=== PATIENT | male | born 1950 | race Hispanic/Latino ===

== ENCOUNTER 2023-04-08 08:26 | Day surgery (SDC) | payer MEDICARE ==
[2023-04-08] VITALS (8 sets, daily range): BP systolic 135–176; BP diastolic 54–70; PULSE 60–65; RESP 12–20
[~2023-04-08] VITALS: Ht 167.6 cm; Wt 76.6 kg
[2023-04-08] MEDS ORDERED: CARV6.25 PO (10:50)
[2023-04-08] MEDS ORDERED: FURO40TA5 PO (10:50)
[2023-04-08] MEDS ORDERED: MAGN400C PO (10:50)
[2023-04-08] MEDS ORDERED: FOLI1TAB85 PO (10:50)
[2023-04-08] MEDS ORDERED: INSU100C6 SQ (10:50)
[2023-04-08] MEDS ORDERED: SPIR25TA6 PO (10:50)
[2023-04-08] MEDS ORDERED: LEVO75CA5 PO (10:50)
[2023-04-08] MEDS ORDERED: DUTA0.5C37 PO (10:50)
[2023-04-08] MEDS ORDERED: MECL-226 PO (10:50)
[2023-04-08] MEDS ORDERED: CLON0.1T PO (10:50)
[2023-04-08 10:54] LABS: BASOPHILS # (AUTO) 0.12 K/uL (0.00-0.20); BASOPHILS % (AUTO) 0.9 % (0.0-5.0); EOSINOPHILS # (AUTO) 0.47 K/uL (0.00-0.70); EOSINOPHILS % (AUTO) 3.7 % (0.0-8.0); HEMATOCRIT 27.1 % (42-54); IMMATURE GRANULOCYTE ABSOLUTE 0.12 K/uL (0-1); MEAN CORPUSCULAR HEMOGLOBIN 28.7 pg (27.0-33.0); MEAN CORPUSCULAR HGB CONC 32.1 g/dL (32.0-36.0); MEAN CORPUSCULAR VOLUME 89.4 fL (79-99); MONOCYTES # (AUTO) 0.7 K/uL (0.1-1.0); MONOCYTES % (AUTO) 5.7 % (3.0-13.0); NEUTROPHILS # (AUTO) 10.3 K/uL (1.8-7.7); NEUTROPHILS % (AUTO) 80.8 % (40.0-77.0); PLATELET COUNT (AUTO) 299 K/uL (130-400); RED BLOOD CELL COUNT(AUTO) 3.03 MIL/uL (4.50-6.20); RED CELL DISTRIBUTION WIDTH 16.5 % (11.0-15.5); WHITE BLOOD COUNT (AUTO) 12.8 K/uL (4.8-10.8)
[2023-04-08 11:04] LABS: INR 0.96 (0.85-1.15); PROTHROMBIN TIME 11.2 SEC (9.6-11.6)
[2023-04-08 11:07] LABS: POTASSIUM 4.4 mmol/L (3.5-5.1)
[2023-04-08 11:19] LABS: B-TYPE NATRIURETIC PEPTIDE 270 pg/mL (0-100)
[2023-04-08] MEDS ORDERED: LIDOCAINE HCL 1% MDV 50ML VIAL ONE (14:14)
[2023-04-08] MEDS ORDERED: FENTANYL CITRATE PF 50 MCG/1 ML 2ML VIAL ONE (14:15)
[2023-04-08] MEDS ORDERED: CEFAZOLIN SODIUM 1 GM VIAL ONE (14:15)
[2023-04-08] MEDS ORDERED: BUPIVACAINE/PF 0.25% 30ML VIAL IJ ONE (14:15)
[2023-04-08] MEDS ORDERED: MIDAZOLAM HCL 1 MG/ML 2ML VIAL ONE (14:15)
[2023-04-08] MEDS ORDERED: ACETAMINOPHEN WITH CODEINE 1 TAB TAB PO PRN ×2 (16:00)
[2023-04-08] MEDS ORDERED: ONDANSETRON 4MG INJ IV PRN (16:00)
[2023-04-08] MEDS ORDERED: HYDRALAZINE 20MG/ML VIAL ONE (16:18)
[2023-04-08] MEDS ORDERED: HYDRALAZINE 20MG/ML VIAL IV PRN (16:30)
== END 2023-04-08 19:05 | disposition home or self-care (01) ==
LOC: CLH 08:26 → DAH 08:26 → CLH 19:05
PROVIDERS: ATTEND Internal Medicine Interventional Cardiology
DX: I48.19 Other persistent atrial fibrillation (principal); I10 Essential (primary) hypertension; E78.00 Pure hypercholesterolemia, unspecified; G47.30 Sleep apnea, unspecified; G47.33 Obstructive sleep apnea (adult) (pediatric); E11.43 Type 2 diabetes mellitus with diabetic autonomic (poly)neuropathy; E11.59 Type 2 diabetes mellitus with other circulatory complications; I25.10 Atherosclerotic heart disease of native coronary artery without angina pectoris; Z99.2 Dependence on renal dialysis; Z95.5 Presence of coronary angioplasty implant and graft; Z95.0 Presence of cardiac pacemaker; Z79.4 Long term (current) use of insulin; Z79.899 Other long term (current) drug therapy; Z90.49 Acquired absence of other specified parts of digestive tract
CPT/HCPCS: 33228; 80048; 83880; 85025; 85610; 85730; 82948 ×2; 36415; 71045; C1785; J3010; J0690; J0665; J0360; J2250; J3490; A4215; A4222; A4221; A4663; A4216; A4606; A4223 ×3